=== PATIENT | male | born 1955 | race Hispanic/Latino ===

== ENCOUNTER → 2025-04-29 | Day surgery (SDC) | payer MEDICARE ==
[2025-04-21 10:54] LABS: BASOPHILS % 0.3 % (0.0-1.0); EOSINOPHILS % 2.7 % (0.0-6.0); LYMPHOCYTES % 30.2 % (18.0-39.1); MONOCYTES % 11.5 % (4.4-11.3); NEUTROPHILS % 55.1 % (38.7-80.0); RED CELL DISTRIBUTION WIDTH 17.4 % (11.7-14.4)
[~2025-04-29] MED LIST: ASPIRIN81 MG PO; ATORVASTATIN CA20 MG PO; CLOPIDOGREL75 MG PO; HYDROCHLOROTHIA25 MG PO; LIDOCAINE HCL 2% LOCAL INJ 5 ML SDV VIAL INJ ONE; LOSARTAN POTASS25 MG PO; METOPROLOL PO; MULTI-VITAMIN1 EACH PO; NEURONTIN100 MG PO; PROPOFOL IV EMULSION 10 MG/ML 20 ML VIAL ONE
[2025-04-29] MEDS: LACTATED RINGER'S 1,000 ML ONE (07:52)
[2025-04-29 10:08] VITALS: BP 122/68; PULSE 66; RESP 18; O2SAT 97
== END | disposition home or self-care (01) ==
LOC: OR 06:54
PROVIDERS: ATTEND Internal Medicine Gastroenterology
DX: Z12.11 Encounter for screening for malignant neoplasm of colon (principal); K64.8 Other hemorrhoids; I10 Essential (primary) hypertension; I25.10 Atherosclerotic heart disease of native coronary artery without angina pectoris; E78.00 Pure hypercholesterolemia, unspecified; Z95.5 Presence of coronary angioplasty implant and graft; Z79.82 Long term (current) use of aspirin; Z95.0 Presence of cardiac pacemaker; Z79.02 Long term (current) use of antithrombotics/antiplatelets; Z79.899 Other long term (current) drug therapy; Z01.810 Encounter for preprocedural cardiovascular examination; Z01.812 Encounter for preprocedural laboratory examination
CPT/HCPCS: 36415; 85025; 93005; G0121; J2003; J2704; J7121; 45378